=== PATIENT | male | born 1995 ===

== ENCOUNTER 2020-10-21 15:03 | Emergency (ER) | payer OTHER, SELFPAY ==
[2020-10-21 15:32] VITALS: BP 159/81; PULSE 74; RESP 16; TEMP 36.9; O2SAT 100; BMI 38.9
[2020-10-21] MEDS: Diphth,Pertus(ACell),Tet Adult 0.5 ML SYRINGE IM (16:31)
--- NOTE | 2020-10-21 16:31 | ED.WOUNDLAC ---
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 He states he had difficulty controlling the bleeding so he came to the ER for evaluation. On arrival bleeding is controlled and a band-aid is in place. He has no numbness or tingling. He has full ROM of his finger. Laceration is superficial and at the tip of the middle finger. Onset (ago): hour(s) (1) Extremity Location: right: hand (middle finger) Place: work Patient tetanus UTD: No Context: accidental Treatments prior to arrival: bandage Related Data Allergies Allergy/AdvReac Type Severity Reaction Status Date / Time No Known Allergies Allergy Unverified 10/21/20 15:34 Review of Systems Review of Systems: Constitutional: No Fever, No Chills Gastrointestinal: No Nausea Musculoskeletal: No joint pain Skin: + Skin Lesions, No rash Neuro: No Weakness, No Numbness Heme/Lymph: No Bruising PMFSH Past Medical History Attestation statement: The following information was validated with the patient. Medical History No known health problems Social History Social History Advance Directives: No Advance Directives Information Provided: Yes Physical Exam Vital Signs: Vital Signs: Last Vital Signs Temp 98.4 F 10/21/20 15:32 Pulse 74 10/21/20 15:32 Resp 16 10/21/20 15:32 BP 159/81 H 10/21/20 15:32 Pulse Ox 100 10/21/20 15:32 Body Mass Index 38.9 Appearance: Alert. Oriented X3. No acute distress. HEENT: normal inspection CVS: Normal heart rate and rhythm. Pulses normal. Respiratory: No respiratory distress. Skin: Skin warm and dry. Normal skin color. Normal skin turgor. No rashes. Extremities: right middle finger with 0.5cm superficial laceration to the distal pulp without active bleeding. Neuro: Oriented X 3. No motor deficit. No sensory deficit. Course Course Course Narrative: 25 y/o male here with superficial laceration to 3rd right finger. Wound was glued shut with Dermabond. TDAP administered. Wound care discussed. Pt stable for d/c. Procedures Laceration Laceration 1: Site: hand (midde finger) Side (If applicable): right Size (cm): 0.5 Description: linear Depth: simple, single layer Pre-repair: irrigated extensively Skin layer closed with: other (Dermabond skin adhesive ) Critical Care Time Critical Care Time Critical Care Time: No Discharge Plan Discharge Clinical Impression: Laceration Patient Disposition: Home, Self-Care Instructions: Finger Laceration (ED) Additional Instructions: Your laceration was glued shut today. This will fall off on its own, usually within 7-10 days. Do not get your finger wet today. After 24 hours, you can gently wash with soap and water. Limit use of your finger if able for the next 24-48 hours. If you develop increased pain, swelling, redness or drainage of pus call your doctor or come back to the ER for further evaluation. Referrals: [facility] [Provider Group] - 2 days
== END 2020-10-21 16:55 | disposition home or self-care (01) ==
LOC: HO.ED 16:23
PROVIDERS: Emergency Provider Emergency Medicine
DX: S61.212A Laceration without foreign body of right middle finger without damage to nail, initial encounter (principal); W31.82XA Contact with other commercial machinery, initial encounter; Y93.89 Activity, other specified; Y92.513 Shop (commercial) as the place of occurrence of the external cause; Y99.0 Civilian activity done for income or pay
CPT/HCPCS: 12001; 90471; 90715; 99283; 99284

== ENCOUNTER 2022-08-13 22:23 | Emergency (ER) | payer OTHER, SELFPAY ==
--- NOTE | ~2022-08-13 | US_ITS ---
EXAMINATION: US VENOUS ULTRASOUND WITH DOPPLER LOWER EXTREMITY, RIGHT CLINICAL INFORMATION: Positive d-dimer. Right calf pain. COMPARISON: None TECHNIQUE: Ultrasound of the deep veins is performed from the hip to the calf with compression sonography and color and pulse Doppler assessment. Spectral analysis with color-flow imaging is performed. FINDINGS: There is normal venous compression and respiratory variation and augmented flow. The visualized common femoral vein, superficial femoral vein, profunda femoral vein, popliteal vein, and the trifurcation region shows no evidence of deep venous thrombosis. There is no significant popliteal fossa cyst. If the patient's symptoms persist, followup ultrasound in 5 days 7 days might be of value to exclude proximal propagation from a non-visualized calf vein. US/US venous duplex LE RT IMPRESSION: No DVT demonstrated in the right lower extremity.
--- NOTE | ~2022-08-13 | XR_ITS ---
EXAMINATION: XR KNEE, RIGHT CLINICAL INFORMATION: Pain COMPARISON: None TECHNIQUE: Four views of the right knee. FINDINGS: No significant joint effusion. Bones are normal anatomic alignment with no acute fracture or dislocation seen. No degenerative or destructive changes and no periosteal reaction. Surrounding soft tissues unremarkable XR/XR knee RT 4V IMPRESSION: No acute bony abnormality.
--- NOTE | ~2022-08-13 | CT_ITS ---
EXAMINATION: CT HEAD WITHOUT CONTRAST CLINICAL INFORMATION: Headache. Family history of brain tumors. COMPARISON: None. TECHNIQUE: Contiguous axial imaging was performed from the skull base to vertex without intravenous contrast. This CT examination was performed using dose optimization techniques as appropriate, variously including the following: * Automated exposure control * Adjustment of mA and/or kV according to patient size (this includes techniques or standardized protocols for targeted exams where dose is matched to indication/reason for exam; i.e. extremities or head) Use of iterative reconstruction technique DLP: 852 mGy-cm. FINDINGS: There is no evidence of acute intracranial hemorrhage or territorial infarction. No abnormal mass effect or midline shift is seen. Eng to white matter differentiation is well preserved. No extra-axial fluid collections are identified. No hydrocephalus. No significant volume loss. There is no abnormal attenuation within the brain parenchyma. The osseous structures and soft tissues are normal. The mastoid air cells and visualized portions of the paranasal sinuses are well aerated. CT/CT head/brain wo IV con IMPRESSION: No acute intracranial pathology.
[2022-08-13 22:26] VITALS: BP 139/70; PULSE 78; RESP 16; TEMP 36.7; O2SAT 98; BMI 34.9
--- NOTE | 2022-08-14 01:30 | ED.GENADULT ---
HPI - General Adult General Chief complaint: Extremity Injury, Lower <MAINOR Carlos - Last Filed: 08/14/22 02:16> Stated complaint: head and knee hurt <MAINOR Carlos - Last Filed: 08/14/22 02:16> Time Seen by Provider: 08/14/22 01:29 <MAINOR Carlos Last Filed: 08/14/22 02:16> Source: patient <MAINOR Carlos Last Filed: 08/14/22 02:16> Mode of arrival: ambulatory <MAINOR Carlos Last Filed: 08/14/22 02:16> Limitations: no limitations <MAINOR Carlos Last Filed: 08/14/22 02:16> History of Present Illness HPI narrative: This is a 27-year-old male presenting to the emergency department with complaints of right-sided knee pain, right thigh pain and headache. Patient tells me initially the pain started off as right-sided knee pain, he says he now has a boring pain to the right knee, worse with movement better at rest he says it started after a skateboarding injury that happened a few months ago. He now tells me that he has been having this boring/throbbing pain to his right posterior knee/in her calf region. Patient denies history of DVT or PE, no hypercoagulable disorders, not in smoker, no long travel, no hormone replacement therapy. Patient also complaining of a headache he tells me he slightly worried because his mom has a brain tumor, he tells me the headache is a throbbing sensation to the right posterior aspect of his head he tells me it time he gets sharp pains and other times it stings. Patient has never had imaging of his head. Denies vision changes, dizziness. Patient not on blood thinners. Patient denies any recent trauma to head, chest, abdomen or pelvis. Patient denies chest pain, shortness of breath, nausea, vomiting, abdominal pain, vision changes, weakness. Patient was ambulatory into the room without difficulty. <MAINOR Carlos Last Filed: 08/14/22 02:16> Related Data Home medications: Previous Rx's Medication Instructions Recorded ketorolac 10 mg tablet 10 mg PO TID PRN pain 5 days #15 08/14/22 tabs <MAINOR Carlos - Last Filed: 08/14/22 02:16> Allergies/adverse reactions: Allergies Allergy/AdvReac Type Severity Reaction Status Date / Time No Known Allergies Allergy Verified 08/13/22 22:29 <MAINOR Carlos - Last Filed: 08/14/22 02:16> Review of Systems Review of Systems: Constitutional : No Weight loss, No Fever, No Chills, No Fatigue, No Malaise ENT/Mouth : No sore throat, No Rhinorrhea Eyes: No Eye Pain, No Swelling, No Redness Cardiovascular : No Chest Pain, No SOB, No Dyspnea on Exertion, No Orthopnea, No Edema, No Palpitations Respiratory : No Cough, No Sputum, No Wheezing Gastrointestinal : No Nausea, No Vomiting, No Diarrhea, No Constipation, No abdominal Pain, No Hematochezia, No Melena Genitourinary : No Dysuria, No Urinary Frequency, No Hematuria, Musculoskeletal : + joint pain, No Myalgias, No Joint Swelling, + calf pain Skin : No Skin Lesions, No rash Neuro : No Weakness, No Numbness, No Dizziness, + Headache Psych : No Anxiety/Panic, No Depression All other systems reviewed and are negative <MAINOR Carlos Last Filed: 08/14/22 02:16> Yes all other systems are reviewed and are negative <MAINOR Carlos - Last Filed: 08/14/22 02:16> [facility] Past Medical History Attestation statement: The following information was validated with the patient. <MAINOR Carlos - Last Filed: 08/14/22 02:16> Source: old records reviewed and nursing notes reviewed <MAINOR Carlos - Last Filed: 08/14/22 02:16> Medical History: Medical History No known health problems <MAINOR Carlos Last Filed: 08/14/22 02:16> Social History Social History: Social History Advance Directives: No <MAINOR Carlos - Last Filed: 08/14/22 02:16> Physical Exam ED Vital Signs: Vital Signs - 24 hr 08/13/22 22:26 Temperature 98.1 F Pulse Rate 78 Respiratory Rate 16 Blood Pressure 139/70 Pulse Oximetry 98 Oxygen Delivery Method Room Air BMI result Body Mass Index 34.9 Vital signs stable <MAINOR Carlos - Last Filed: 08/14/22 02:16> Vital Signs - 24 hr 08/13/22 22:26 Temperature 98.1 F Pulse Rate 78 Respiratory Rate 16 Blood Pressure 139/70 Pulse Oximetry 98 Oxygen Delivery Method Room Air BMI result Body Mass Index 34.9 <Feliciano Akins MD - Last Filed: 08/14/22 04:40> Appearance: Alert.? Oriented X3.? No acute distress.? Head: Normocephalic, atraumatic, no step-offs or deformities Eyes: Pupils equal, round and reactive to light.? ENT: Pharynx normal.? Neck: Normal inspection.? Neck supple.? CVS: Normal heart rate and rhythm.? Pulses normal.? Respiratory: No respiratory distress.? Breath sounds normal.? Abdomen: Soft and nontender.? Skin: Skin warm and dry.? Normal skin color.? Normal skin turgor.? Extremities: No lower extremity edema.? 5/5 strength to bilateral upper and lower extremities. Full range of motion to bilateral knees, pain-free. No overlying skin changes to bilateral knees. 2+ popliteal, anterior tibialis, posterior tibialis pulses equal bilateral. Normal capillary refill to lower extremities, no foot drop. Patient does report tenderness to palpation with right inner calf. No calf tenderness to palpation of left inner calf. Back: No midline tenderness, no C-spine tenderness, full range of motion, no CVA tenderness bilaterally Neuro: Oriented X 3.? No motor deficit.? No sensory deficit. CN 2-12 intact . Patient ambulatory with steady gait normal coordination. Normal [id number], [id number]. <MAINOR Carlos - Last Filed: 08/14/22 02:16> Course Reevaluation(s) Reevaluation #1: X-ray of right knee unremarkable. D-dimer pending. Pending CT of the head. <MAINOR Carlos - Last Filed: 08/14/22 02:16> Time: 01:35 <MAINOR Carlos - Last Filed: 08/14/22 02:16> Reevaluation #2: Positive D-dimer, venous duplex of right lower extremity ordered to rule out DVT. I do not suspect arterial occlusion on this patient. Sign-out given tonight provider Dr. Akins <MAINOR Carlos - Last Filed: 08/14/22 02:16> Time: 02:13 <MAINOR Carlos - Last Filed: 08/14/22 02:16> Medications Administered Discontinued Medications Generic Name Dose Route Start Last Admin Trade Name Freq PRN Reason Stop Dose Admin Ketorolac Tromethamine 30 mg 08/14/22 01:30 08/14/22 01:50 Ketorolac Tromethamine 15 Mg/Ml Vial IM 08/14/22 01:31 30 mg ONCE ONE Administration <MAINOR Carlos - Last Filed: 08/14/22 02:16> Medications Administered Discontinued Medications Generic Name Dose Route Start Last Admin Trade Name Freq PRN Reason Stop Dose Admin Ketorolac Tromethamine 30 mg 08/14/22 01:30 08/14/22 01:50 Ketorolac Tromethamine 15 Mg/Ml Vial IM 08/14/22 01:31 30 mg ONCE ONE Administration <Feliciano Akins MD - Last Filed: 08/14/22 04:40> Medical Decision Making Medical Decision Making [facility] Narrative: 0[age]-year-old male presents with right knee pain, right calf pain and headache. Physical examination with calf tenderness to palpation on the right-hand side. Normal knees. Neuro nonfocal. Will rule out fracture dislocation of the knee although unlikely. Calf tenderness raises suspicion for DVT although patient without significant risk factors will do D-dimer to rule this out. Headache likely typical headache, no vision changes or dizziness unlikely stroke, posterior stroke. Due to family history of brain tumors will obtain head CT. Plan at this time imaging. <MAINOR Carlos - Last Filed: 08/14/22 02:16> 0134 19-year-old male presents with right knee pain, right calf pain and headache. Physical examination with calf tenderness to palpation on the right-hand side. Normal knees. Neuro nonfocal. Will rule out fracture dislocation of the knee although unlikely. Calf tenderness raises suspicion for DVT although patient without significant risk factors will do D-dimer to rule this out. Headache likely typical headache, no vision changes or dizziness unlikely stroke, posterior stroke. Due to family history of brain tumors will obtain head CT. Plan at this time imaging. 440 ampatient clinically as thrombophlebitis of right foot calf area ultrasound negative CT scan of head negative discharge patient <Feliciano Akins MD - Last Filed: 08/14/22 04:40> Differential Diagnosis Differential Diagnoses: The differential diagnosis associated with the presentation includes <MAINOR Carlos - Last Filed: 08/14/22 02:16> Will rule out fracture dislocation of the knee although unlikely. Calf tenderness raises suspicion for DVT although patient without significant risk factors will do D-dimer to rule this out. Headache likely typical headache, no vision changes or dizziness unlikely stroke, posterior stroke. Due to family history of brain tumors will obtain head CT. <MAINOR Carlos - Last Filed: 08/14/22 02:16> Admission/Observation Consideration of admission/observation: Escalation of care including admission/observation considered <MAINOR Carlos - Last Filed: 08/14/22 02:16> Unlikely <MAINOR Carlos - Last Filed: 08/14/22 02:16> Lab Data MDM Lab Attestation statement: I reviewed the patient's lab results. <MAINOR Carlos - Last Filed: 08/14/22 02:16> Labs: Lab Results 08/14/22 Range/Units 01:46 D-Dimer High Sensitivty 417 NG/ML <MAINOR Carlos - Last Filed: 08/14/22 02:16> Lab Results 08/14/22 Range/Units 01:46 D-Dimer High Sensitivty 417 NG/ML <Feliciano Akins MD - Last Filed: 08/14/22 04:40> Core Measures AMI core measures followed: Yes <MAINOR Carlos - Last Filed: 08/14/22 02:16> Measure exclusions: not indicated <MAIONR Carlos Last Filed: 08/14/22 02:16> Critical Care Time Critical Care Time Critical Care Time: No <MAINOR Carlos Last Filed: 08/14/22 02:16> Discharge Plan Discharge Clinical Impression: Knee pain, right, Calf pain, Headache <MAINOR Carlos Last Filed: 08/14/22 02:16> Patient Disposition: Home, Self-Care <MAINOR Carlos Last Filed: 08/14/22 02:16> Instructions: Acute Headache (ED), Leg Cramps (ED), Knee Pain (ED), General Headache (ED) <MAINOR Carlos Last Filed: 08/14/22 02:16> Additional Instructions: Take your medications as prescribed. If you were prescribed antibiotics today, it is important that you take your medication to their entirety, do not skip any doses, do not finish them early. Follow-up with your primary care provider this week. Return to the emergency department with new or worsening symptoms. Such as fevers, chills, chest pain, shortness of breath, nausea, vomiting, dizziness, headache, vision changes, lethargy In case of emergency call 911 Toradol has been sent to your pharmacy, you tolerated this well in the department. Please take this as prescribed do not take this with ibuprofen, or other NSAIDs, do not mix this with alcohol. Side effects of this medication including increased risk for bleeding and possible kidney injury. <MAINOR Carlos Last Filed: 08/14/22 02:16> Prescriptions: New ketorolac 10 mg tablet 10 mg PO TID PRN (Reason: pain) 5 Days Qty: 15 0RF Rx Instructions: Tolerated IM in the department <MAINOR Carlos Last Filed: 08/14/22 02:16> Referrals: Physician,None [Primary Care Provider] - 2 days <MAINOR Carlos Last Filed: 08/14/22 02:16> Stand Alone Forms: Work/School Release <MAINOR Carlos Last Filed: 08/14/22 02:16>
[2022-08-14] MEDS: Ketorolac Tromethamine 15 MG/ML VIAL 30 MG IM (01:50)
[2022-08-14 02:03] LABS: D Dimer High Sensitivity 417 NG/ML
== END 2022-08-14 04:42 | disposition home or self-care (01) ==
PROVIDERS: Physician Assistant; Emergency Provider Internal Medicine
DX: R51.9 Headache, unspecified (principal); M79.661 Pain in right lower leg; M25.561 Pain in right knee
CPT/HCPCS: 36415; 70450; 73564; 85379; 93971; 96372; 99283; 99284; J1885

== ENCOUNTER 2022-11-11 19:15 | Emergency (ER) | payer OTHER, SELFPAY ==
[2022-11-11 19:15] VITALS: BP 159/96; PULSE 128; RESP 18; TEMP 36.6; O2SAT 98; BMI 38.0
--- NOTE | 2022-11-11 19:17 | ED.UPPEXIN ---
HPI - Extremity Injury (Upper) General Chief Complaint: Wound/Laceration <Viki Portillo NP - Last Filed: 11/11/22 19:20> Stated Complaint: Finger lac <Viki Portillo NP - Last Filed: 11/11/22 19:20> Time Seen by Provider: 11/11/22 20:35 <Viki Portillo NP - Last Filed: 11/11/22 19:20> Source: patient <MAINOR Carlos - Last Filed: 11/11/22 21:28> Mode of arrival: ambulatory <MAINOR Carlos - Last Filed: 11/11/22 21:28> Limitations: no limitations <MAINOR Carlos - Last Filed: 11/11/22 21:28> History of Present Illness HPI narrative: 27-year-old male presents with laceration to left thumb, patient reports he accidentally cut his some while trying to cut any in's an hour prior to arrival. He reports he was bleeding a lot. Denies numbness, tingling. He tells me the area where he cut his finger is throbbing. <MAINOR Carlos - Last Filed: 11/11/22 21:28> Related Data Home Medications: Previous Rx's Medication Instructions Recorded ketorolac 10 mg tablet 10 mg PO TID PRN pain 5 days #15 08/14/22 tabs <Viki Portillo NP - Last Filed: 11/11/22 19:20> Allergies/Adverse Reactions: Allergies Allergy/AdvReac Type Severity Reaction Status Date / Time No Known Allergies Allergy Verified 08/13/22 22:29 <Viki Portillo NP - Last Filed: 11/11/22 19:20> Review of Systems Review of Systems: Constitutional : No Fever, No Chills, Cardiovascular : No Chest Pain, No SOB Respiratory : No Dyspnea Gastrointestinal : No abdominal pain Musculoskeletal : No Joint Swelling Skin : No rash, positive skin laceration Neuro : No Weakness, No Numbness Psych : No SI/HI <MAINOR Carlos Last Filed: 11/11/22 21:28> Yes all other systems are reviewed and are negative <MAINOR Carlos - Last Filed: 11/11/22 21:28> [facility] Past Medical History Attestation statement: The following information was validated with the patient. <MAINOR Carlos - Last Filed: 11/11/22 21:28> Source: old records reviewed and nursing notes reviewed <MAINOR Carlos - Last Filed: 11/11/22 21:28> Medical History: Medical History No known health problems <Viki Portillo NP - Last Filed: 11/11/22 19:20> Social History Social History: Social History Advance Directives: No Advance Directives Information Provided: No <Viki Portillo NP - Last Filed: 11/11/22 19:20> Physical Exam Vital Signs: Vital Signs: Last Vital Signs Temp 97.9 F 11/11/22 19:15 Pulse 128 H 11/11/22 19:15 Resp 18 11/11/22 19:15 BP 159/96 H 11/11/22 19:15 Pulse Ox 98 11/11/22 19:15 O2 Del Method Room Air 11/11/22 19:15 BMI result Body Mass Index 38.0 <Viki Portillo NP - Last Filed: 11/11/22 19:20> Vital Signs: Last Vital Signs Temp 97.9 F 11/11/22 19:15 Pulse 128 H 11/11/22 19:15 Resp 18 11/11/22 19:15 BP 159/96 H 11/11/22 19:15 Pulse Ox 98 11/11/22 19:15 O2 Del Method Room Air 11/11/22 19:15 BMI result Body Mass Index 38.0 Vital signs stable <MAINOR Carlos - Last Filed: 11/11/22 21:28> Appearance: Alert.? Oriented X3.? No acute distress.? Head: Normocephalic, atraumatic, no step-offs or deformities Eyes: Pupils equal, round and reactive to light.? CVS: Normal heart rate and rhythm.? Pulses normal.? Respiratory: No respiratory distress.? Breath sounds normal.? Abdomen: Soft and nontender.? Skin: Skin warm and dry.? Normal skin color.? Normal skin turgor.? 4 cm linear laceration to left thumb distal aspect. 2+ radial pulses equal bilateral. No wrist drop. Capillary refill less than 2 seconds top bilateral upper extremity digits. Extremities: No lower extremity edema.? No calf ttp. 5/5 strength to bilateral upper and lower extremities Back: No midline tenderness, no C-spine tenderness, full range of motion, no CVA tenderness bilaterally Neuro: Oriented X 3.? No motor deficit.? No sensory deficit. CN 2-12 intact <MAINOR Carlos - Last Filed: 11/11/22 21:28> Course Course Course Narrative: This is a rapid medical exam. Deferred additional HPI, ROS, PE to primary provider. 27 yo male right handed with no known medical history of left thumb laceration from cutting an onion at home. Tetanus UTD. Will need wound repair of 4cm lac left thumb. <Viki Portillo NP - Last Filed: 11/11/22 19:20> Reevaluation(s) Reevaluation #1: Sutures placed. Patient tolerated procedure well. No complications. Advised to return in 7-10 days. For suture removal. No indication for antibiotics. Educated patient on diagnosis and treatment plan, answered all question, patient verbalizes understanding. At this time patient will be discharged home, advised to return with new or worsening symptoms. Educated on worrisome signs and symptoms and when to return. At this time I feel comfortable discharge home. <MAINOR Carlos - Last Filed: 11/11/22 21:28> Time: 21:28 <MAINOR Carlos - Last Filed: 11/11/22 21:28> Medications Administered Discontinued Medications Generic Name Dose Route Start Last Admin Trade Name Freq PRN Reason Stop Dose Admin Lidocaine HCl 5 ml 11/11/22 21:01 11/11/22 21:08 Lidocaine Hcl 2 % Mpf 5 Ml Vial SUBCUT 11/11/22 21:02 Not Given ONCE ONE <Viki Portillo NP - Last Filed: 11/11/22 19:20> Medications Administered Discontinued Medications Generic Name Dose Route Start Last Admin Trade Name Freq PRN Reason Stop Dose Admin Lidocaine HCl 5 ml 11/11/22 21:01 11/11/22 21:08 Lidocaine Hcl 2 % Mpf 5 Ml Vial SUBCUT 11/11/22 21:02 Not Given ONCE ONE <MAINOR Carlos - Last Filed: 11/11/22 21:28> Medical Decision Making Medical Decision Making MDM Narrative: 27-year-old male presents with left thumb laceration status post cutting an onion. Tetanus up-to-date Physical exam significant for 4 cm linear laceration to left thumb distal aspect. 2+ radial pulses equal bilateral. No wrist drop. Capillary refill less than 2 seconds top bilateral upper extremity digits. Likely simple laceration, no signs of foreign body. No signs of ligament or tendon injury. Unlikely fracture, dislocation. No signs of threatened limb or neurovascular compromise Plan repair with sutures <MAINOR Carlos - Last Filed: 11/11/22 21:28> Differential Diagnosis Differential Diagnoses: The differential diagnosis associated with the presentation includes <MAINOR Carlos - Last Filed: 11/11/22 21:28> Likely simple laceration, no signs of foreign body. No signs of ligament or tendon injury. Unlikely fracture, dislocation. No signs of threatened limb or neurovascular compromise <MAINOR Carlos - Last Filed: 11/11/22 21:28> Admission/Observation Consideration of admission/observation: Escalation of care including admission/observation considered <MAINOR Carlos - Last Filed: 11/11/22 21:28> Core Measures AMI core measures followed: Yes <MAINOR Carlos - Last Filed: 11/11/22 21:28> Measure exclusions: not indicated <MAINOR Carlos - Last Filed: 11/11/22 21:28> Procedures Laceration Laceration 1: Site: hand <MAINOR Carlos Last Filed: 11/11/22 21:28> Side (If applicable): left <MAINOR Carlos Last Filed: 11/11/22 21:28> Size (cm): 4 <MAINOR Carlos - Last Filed: 11/11/22 21:28> Description: linear <MAINOR Carlos - Last Filed: 11/11/22 21:28> Depth: simple, single layer <MAINOR Carlos - Last Filed: 11/11/22 21:28> Local Anesthetic: lidocaine 1% <MAINOR Carlos - Last Filed: 11/11/22 21:28> Amount of anesthesia used (mL): 5 <MAINOR Carlos - Last Filed: 11/11/22 21:28> Pre-repair: wound explored and irrigated extensively <MAINOR Carlos - Last Filed: 11/11/22 21:28> Skin layer closed with: nylon <MAINOR Carlos - Last Filed: 11/11/22 21:28> Size (cm): 4-0 <MAINOR Carlos - Last Filed: 11/11/22 21:28> Number of sutures: 2 <MAINOR Carlos Last Filed: 11/11/22 21:28> Critical Care Time Critical Care Time Critical Care Time: No <MAINOR Carlos - Last Filed: 11/11/22 21:28> Discharge Plan Discharge Clinical Impression: Laceration <iVki Portillo NP - Last Filed: 11/11/22 19:20> Patient Disposition: Home, Self-Care <Viki Portillo NP - Last Filed: 11/11/22 19:20> Additional Instructions: Take your medications as prescribed. If you were prescribed antibiotics today, it is important that you take your medication to their entirety, do not skip any doses, do not finish them early. Follow-up with your primary care provider this week. Return to the emergency department with new or worsening symptoms. Such as fevers, chills, chest pain, shortness of breath, nausea, vomiting, dizziness, headache, vision changes, lethargy In case of emergency call 911 Return for suture removal in 7-10 days. <ADELE Noble Last Filed: 11/11/22 19:20> Prescriptions: No Action ketorolac 10 mg tablet 10 mg PO TID PRN (Reason: pain) 5 Days Qty: 15 0RF Rx Instructions: Tolerated IM in the department <Viki Portillo NP - Last Filed: 11/11/22 19:20> Referrals: Physician,None [Primary Care Provider] - 2 days <Viki Portillo NP - Last Filed: 11/11/22 19:20> Stand Alone Forms: Work/School Release <Viki Portillo NP - Last Filed: 11/11/22 19:20>
== END 2022-11-11 21:40 | disposition home or self-care (01) ==
PROVIDERS: Emergency Provider Emergency Medicine
DX: S61.412A Laceration without foreign body of left hand, initial encounter (principal); M79.642 Pain in left hand; W26.0XXA Contact with knife, initial encounter; Y93.9 Activity, unspecified; Y92.9 Unspecified place or not applicable; Y99.9 Unspecified external cause status
CPT/HCPCS: 12002; 99282; 99284

== ENCOUNTER 2023-07-22 16:47 | Emergency (ER) | payer OTHER, SELFPAY ==
--- NOTE | ~2023-07-22 | CT_ITS ---
EXAMINATION: CT left knee without IV contrast CLINICAL INFORMATION: Tibial plateau fracture. COMPARISON: Previous x-ray from earlier the same day TECHNIQUE: Axial images through the left knee without IV contrast. Sagittal and coronal reconstructions on the technologist workstation were performed. This CT examination was performed using dose optimization techniques as appropriate, variously including the following: *Automated exposure control *Adjustment of mA and/or kV according to patient size (this includes techniques or standardized protocols for targeted exams where dose is matched to indication/reason for exam; i.e. extremities or head) *Use of iterative reconstruction technique DLP 1 4 4 mg/cm FINDINGS: There is a comminuted lateral tibial plateau fracture. There is 2 mm depression. There is a lateral vertical component. There is 4 mm lateral displacement of the vertical component. No other fracture. Joint spaces are otherwise normal. There is a moderate-sized joint effusion. CT/CT knee LT wo IV con IMPRESSION: Comminuted lateral tibial fracture with 2 mm depression and 4mm lateral displacement of vertical component.
--- NOTE | ~2023-07-22 | XR_ITS ---
EXAMINATION: X-RAY LEFT KNEE X-RAY LEFT TIBIA/FIBULA CLINICAL INFORMATION: Injury. COMPARISON: None. TECHNIQUE: 4 views of the left knee and 2 views of the left tibia/fibula. FINDINGS: Comminuted fracture of the lateral tibial plateau with intra-articular extension and mild depression of the intra-articular surface. No additional fractures. Moderate joint effusion in the knee. No unexpected radiopaque foreign bodies. XR/XR tibia fibula LT 2V IMPRESSION: 1. Comminuted fracture of the lateral tibial plateau. 2. Moderate joint effusion.
--- NOTE | ~2023-07-22 | XR_ITS ---
EXAMINATION: X-RAY LEFT KNEE X-RAY LEFT TIBIA/FIBULA CLINICAL INFORMATION: Injury. COMPARISON: None. TECHNIQUE: 4 views of the left knee and 2 views of the left tibia/fibula. FINDINGS: Comminuted fracture of the lateral tibial plateau with intra-articular extension and mild depression of the intra-articular surface. No additional fractures. Moderate joint effusion in the knee. No unexpected radiopaque foreign bodies. XR/XR knee LT 3V IMPRESSION: 1. Comminuted fracture of the lateral tibial plateau. 2. Moderate joint effusion.
--- NOTE | 2023-07-22 18:52 | ED.FALL ---
HPI - Fall General Chief Complaint: Extremity Injury, Lower Stated Complaint: fell down stairs/left side pain Time Seen by Provider: 07/22/23 19:30 Source: patient Mode of arrival: ambulatory Limitations: no limitations History of Present Illness HPI Narrative: Patient comes to the emergency room complaining of left-sided knee pain anti pain. Patient states that earlier today he was walking up the stairs, patient slipped both was able to land on both of his legs. Patient states that for about 45 minutes he was able to keep working. However, shortly after patient started complaining of worsening pain around the left knee area and the left eye. Related Data Previous Rx's Medication Instructions Recorded ketorolac 10 mg tablet 10 mg PO TID PRN pain 5 days #15 08/14/22 tabs acetaminophen 500 mg tablet 500 mg PO Q6H PRN fever or pain 07/22/23 #20 tabs ibuprofen 600 mg tablet 600 mg PO Q8H PRN fever or pain 07/22/23 #30 tabs tramadol 50 mg tablet 50 mg PO Q8H PRN pain #10 tabs 07/22/23 Allergies Allergy/AdvReac Type Severity Reaction Status Date / Time No Known Allergies Allergy Verified 08/13/22 22:29 [facility] Past Medical History Medical History No known health problems Social History Social History Advance Directives: No Advance Directives Information Provided: Yes Physical Exam Vital Signs: Vital Signs: Last Vital Signs Temp 97.7 F 07/22/23 19:30 Pulse 77 07/22/23 19:30 Resp 16 07/22/23 19:30 BP 143/71 H 07/22/23 19:30 Pulse Ox 99 07/22/23 19:30 O2 Del Method Room Air 07/22/23 19:30 BMI result Body Mass Index 35.7 Course Course Course Narrative: RME: 28 year-old male w/ PMHx presenting to the ED c/o L knee pain s/p slip & fall while walking up the stairs at work, slipping on top stair & then jumping backwards down 6 stairs & felt like he landed wrong on feet. Unable to bear weight now, but was ambulatory after incident for about 45mins. denies head trauma or LOC L knee with diffuse ttp and decreased ROM. Unable to visualize in triage XRs ordered Full HPI, ROS and PE to be performed by primary ED provider. Medications Administered Discontinued Medications Generic Name Dose Route Start Last Admin Trade Name Nena PRN Reason Stop Dose Admin Acetaminophen 975 mg 07/22/23 19:48 07/22/23 20:03 Acetaminophen 325 Mg Tablet PO 07/22/23 19:49 975 mg ONCE ONE Administration Ibuprofen 600 mg 07/22/23 19:48 07/22/23 20:03 Ibuprofen 600 Mg Tablet PO 07/22/23 19:49 600 mg ONCE ONE Administration Medical Decision Making Medical Decision Making MDM Narrative: -my interpretation of x-ray, possible lateral tibial plateau fracture of the left knee. -patient declined IM medication. Patient given p.o. Motrin and Tylenol. -I discussed the x-ray findings with orthopedics on-call. -CT scan recommended to determine displacement and depth -CT scan result shows 2 mm depression and 4 mm lateral displacement. -per orthopedics recommendation, patient was put on a knee immobilizer, given crutches, nonweightbearing. Patient will follow-up with them -patient instructed to follow-up with were connection as this was a work related injury Differential Diagnosis Differential Diagnoses: The differential diagnosis associated with the presentation includes (Knee contusion, fracture, effusion) Admission/Observation Consideration of admission/observation: Escalation of care including admission/observation considered (Given patient's fracture, admission was considered by Orthopedics.) Consult Healthcare Provider Management of the patient was discussed with: Armor Officer Independent Interpretation I performed an independent interpretation of an: CT Scan Radiology Impression Discussion of test interpretation with radiology: I have reviewed the radiologist's reading. Radiologist Impression: FINDINGS: There is a comminuted lateral tibial plateau fracture. There is 2 mm depression. There is a lateral vertical component. There is 4 mm lateral displacement of the vertical component. No other fracture. Joint spaces are otherwise normal. There is a moderate-sized joint effusion. CT/CT knee LT wo IV con IMPRESSION: Comminuted lateral tibial fracture with 2 mm depression and 4mm lateral displacement of vertical component. Critical Care Time Critical Care Time Critical Care Time: Yes Total Critical Care Time: 60 Attestation: I have personally provided critical care time. Time includes review of lab data, radiology results, discussion with consultants, and monitoring for potential decompensation. Intervention performed as documented. Discharge Plan Discharge Clinical Impression: Closed fracture of tibial plateau Patient Disposition: Home, Self-Care Instructions: Leg Fracture (ED) Additional Instructions: Do not bear weight on your left leg until cleared by Orthopedics. Please call orthopedics to schedule an appointment. Please follow-up with your primary care physician tomorrow. If you have any worsening or new symptoms, please return to the emergency room or call 911 Prescriptions: New tramadol 50 mg tablet 50 mg PO Q8H PRN (Reason: pain) Qty: 10 0RF ibuprofen 600 mg tablet 600 mg PO Q8H PRN (Reason: fever or pain) Qty: 30 0RF acetaminophen 500 mg tablet 500 mg PO Q6H PRN (Reason: fever or pain) Qty: 20 0RF No Action ketorolac 10 mg tablet 10 mg PO TID PRN (Reason: pain) 5 Days Qty: 15 0RF Rx Instructions: Tolerated IM in the department Referrals: Bonita Sotomayor PA-C [Physician Senior Product Manager] - 07/23/23 Bora Yost MD [Physician] - 07/23/23 Stand Alone Forms: Work/School Release
[2023-07-22 18:55] VITALS: BP 137/75; PULSE 82; RESP 18; TEMP 37.4; O2SAT 99; BMI 35.7
[2023-07-22 19:30] VITALS: BP 143/71; PULSE 77; RESP 16; TEMP 36.5; O2SAT 99
[2023-07-22] MEDS: Ibuprofen 600 MG TABLET PO (20:03)
[2023-07-22] MEDS: Acetaminophen 325 MG TABLET 975 MG PO (20:03)
[2023-07-22 22:09] VITALS: BP 126/62; PULSE 66; RESP 16; TEMP 36.5; O2SAT 98
== END 2023-07-22 23:05 | disposition home or self-care (01) ==
PROVIDERS: Emergency Provider Emergency Medicine
DX: S82.252A Displaced comminuted fracture of shaft of left tibia, initial encounter for closed fracture (principal); W17.89XA Other fall from one level to another, initial encounter; Y93.89 Activity, other specified; Y92.9 Unspecified place or not applicable; Y99.0 Civilian activity done for income or pay
CPT/HCPCS: 73562; 73590; 73700; 99283; 99284

== ENCOUNTER → 2023-07-28 12:49 | Outpatient (BNVA) | payer OTHER, SELFPAY | PROVIDERS: Visit Provider Physician Assistant ==

== ENCOUNTER 2023-07-28 12:50 | Outpatient (AMB) | payer OTHER, SELFPAY ==
--- NOTE | 2023-07-28 13:21 | MHC.OFFVIS ---
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 Patient reports he was going up the stairs and he slipped on the top step and feel down injuring his left leg. He states that he feels a lot of soreness and he states applying some weight on the left side on accident. 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 The patient presented to the ED on 07/22/2023 status post a slip and fall on the stairs, while at work. He reported he slipped on the top step and jumped backwards 6 steps landing wrong on the bilateral feet. X-rays and CT of the left knee were obtained. The patient was placed in a knee immobilizer, given crutches, and instructed to remain non-weight bearing. While in the office today the patient reports he was going up the stairs when he slipped on the top step and fell down injuring his left lower extremity. He reports increased soreness. He states he has applied weight to the left lower extremity on accident. 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 He states he did not fill at first but he plans on doing so. Patient reports he is transitioning to a new job that is supposed to be on Friday08/05/2023. 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 He would like to get back to work as soon as possible. Patient is accompanied in the office today by a female family member. Patient has no known allergy history. Patient is currently taking, as follows: -Acetaminophen 500 mg PO Q6H PRN -Ibuprofen 600 mg PO Q8H PRN -Ketorolac 10 mg PO TID PRN -Tramadol 50 mg PO Q8H PRN Patient has no known medical history. Patient has no known surgical history. [facility] Medical History No known health problems Social History (Updated 07/28/23 @ 13:26 by Maria Isabel Orr) Alcohol intake: current Current occupational status: employed Review of Systems Const All systems reviewed & are unremarkable except as noted in HPI and below Physical Exam Vital Signs: BMI result Body Mass Index 35.7 Const General: cooperative and no acute distress Orientation/consciousness: patient oriented x3 Resp Effort & Inspection: normal respiratory effort and able to speak in complete sentences Cardio Peripheral pulses: Peripheral pulses 2+ throughout Skin General skin exam: no rashes or lesions noted Neuro General: patient oriented x3 Extrem Other: Left knee: Mild effusion. Tenderness to palpation along the lateral tibia. Able to dorsiflex and plantarflex. He does endorse intermittent numbness and tingling into the toes. Compartments are soft and compressible. Office Procedures Fracture Care Fracture Billing Code: Fracture Billing Code Assessment & Plan Assessment & Plan (1) Tibial plateau fracture, left: Code(s): S82.142A - Displaced bicondylar fracture of left tibia, initial encounter for closed fracture Plan Mr. Martinez is a 28-year-old male who presents in the office today, as a new patient, for an evaluation of left knee pain. The patient presented to the ED on 07/22/2023 status post a slip and fall on the stairs, while at work. He reported he slipped on the top step and jumped backwards 6 steps landing wrong on the bilateral feet. X-rays and CT of the left knee were obtained. The patient was placed in a knee immobilizer, given crutches, and instructed to remain non-weight bearing. While in the office today the patient reports he was going up the stairs when he slipped on the top step and fell down injuring his left lower extremity. He reports increased soreness. He states he has applied weight to the left lower extremity on accident. This injury occurred while on the job at his [employer] job. He states he did not fill at first but he plans on doing so. Patient reports he is transitioning to a new job that is supposed to be on Friday08/05/2023. 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 He would like to get back to work as soon as possible. Patient is accompanied in the office today by a female family member. Patient has no known allergy history. Patient is currently taking, as follows: -Acetaminophen 500 mg PO Q6H PRN -Ibuprofen 600 mg PO Q8H PRN -Ketorolac 10 mg PO TID PRN -Tramadol 50 mg PO Q8H PRN Patient has no known medical history. Patient has no known surgical history. Dr. Atikns was available to see the patient with me while in the office today and collaborative treatment plan was made. We discussed conservative versus surgical treatment. I discussed in detail the procedure and what to expect pre and post operatively. We discussed the risks, benefits and alternatives to the surgery as well as the rehabilitation course. The risks; which include, but are not limited to infection, bleeding, nerve injury, ongoing pain, swelling, and stiffness, perioperative risk of injury to bones and soft tissues, and blood clots. I have answered all questions and with their understanding they have consented to move forward with a left knee tibial plateau ORIF to be performed by Dr. Melquiades Atkins. We discussed with the patient he needs to get the paperwork and claim for worker compensation filed prior to surgery. The patient understands and states he is in the process of getting the claim started. Follow up will be at the post operative appointment, or sooner if needed. CT of the left knee, obtained on 07/22/2023, revealed: There is a comminuted lateral tibial plateau fracture. There is 2 mm depression. There is a lateral vertical component. There is 4 mm lateral displacement of the vertical component. No other fracture. Joint spaces are otherwise normal. There is a moderate-sized joint effusion. X-rays of the left knee, obtained on 07/22/2023, revealed: Comminuted fracture of the lateral tibial plateau with intra-articular extension and mild depression of the intra-articular surface. No additional fractures. Moderate joint effusion in the knee. No unexpected radiopaque foreign bodies. Patient Instructions: Scribed for Bonita Sotomayor PA-C by maria fernanda Mendieta scribe, on 07/28/2023 at 1:02 pm, EST. Coding Level of Care Code New Pt Level 4 (24486) Diagnoses Tibial plateau fracture, left S82.142A CPT Codes Fracture Care - Fracture Billing Code: Fracture Billing Code ([id number])
[2023-07-28 13:26] VITALS: BMI 35.7
== END 2023-07-28 15:04 | disposition home or self-care (01) ==
PROVIDERS: Referring Provider Physician Assistant; Visit Provider Physician Assistant
DX: S82.142A Displaced bicondylar fracture of left tibia, initial encounter for closed fracture (principal); Z04.2 Encounter for examination and observation following work accident
CPT/HCPCS: 99204

== ENCOUNTER 2023-07-30 13:55 | Outpatient (REF) | payer OTHER, SELFPAY | END 2023-07-30 13:56 | disposition home or self-care (01) | LOC: HO.HOSX 13:55 | PROVIDERS: Visit Provider Physician Assistant | DX: Z13.89 Encounter for screening for other disorder (principal) ==

== ENCOUNTER 2023-08-01 09:15 | Outpatient (REF) | payer OTHER, SELFPAY ==
--- NOTE | ~2023-08-01 | XR_ITS ---
EXAMINATION: XR KNEE, LEFT CLINICAL INFORMATION: Pain. COMPARISON: CT knee dated 07/22/2023; left knee radiographs dated 07/22/2023 and 08/13/2022. TECHNIQUE: AP and lateral views of the left knee. FINDINGS: Bony mineralization is normal. A mildly displaced vertical fracture is redemonstrated of the lateral femoral condyle, with intra-articular extension. There is stable mild depression of the intra-articular surface of the lateral tibial plateau. No dislocation is seen. There is a moderate joint effusion. No foreign body seen. XR/XR knee LT 3V IMPRESSION: There is stable alignment of a comminuted, mildly displaced fracture of the left lateral tibial plateau. There is no significant new callus formation. A moderate joint effusion is seen.
== END 2023-08-01 09:16 | disposition home or self-care (01) ==
LOC: HO.HOSX 09:15
PROVIDERS: Visit Provider Physician Assistant
DX: S82.142D Displaced bicondylar fracture of left tibia, subsequent encounter for closed fracture with routine healing (principal); M25.562 Pain in left knee
CPT/HCPCS: 73562; 99212

== ENCOUNTER 2023-08-01 11:07 | Outpatient (AMB) | payer OTHER, SELFPAY ==
--- NOTE | 2023-08-01 11:42 | MHC.OFFVIS ---
Intake Vital Signs 08/01/23 11:47 Height 5 ft 8 in Weight 235 lb BMI 35.7 Intake Visit Reasons: OV-Left tibal plateau fx -other options Intake Note: Cristian is a 28 year old male who presents today for a evaluation for his left tibal plat fx, DOI 07/22/23. Patient reports he is doing okay for the most part but he is feeling a bit weary about his last visit. Pain is a at a 3/10 on the pain scale per patient. He states that he is having left hip soreness from using the crutches. Allergies No Known Allergies Allergy (Verified 07/28/23 13:24) HPI OV-Left tibal plateau fx -other options HPI Details 28-year-old male who presents in the office today for a follow up of a left tibial plateau fracture, which occurred on 07/22/2023 status post a slip and fall on the stairs, while at work. He reported he slipped on the top step and jumped backwards 6 steps landing wrong on the bilateral feet. I last saw the patient in the office on 07/28/2023 when we discussed conservative versus surgical options for his left knee. The patient initially wished to move forward with surgical intervention but now would like to discuss more options. While in the office today the patient reports he is doing okay for the most part, but he is feeling a bit weary about his last encounter. He states his pain is a 3/10 while in the office today. He reports left hip pain from using the crutches. [facility] Medical History No known health problems Social History Alcohol intake: current Current occupational status: employed Review of Systems Const All systems reviewed & are unremarkable except as noted in HPI and below Physical Exam Vital Signs: BMI result Body Mass Index 35.7 Const General: cooperative, healthy appearing and no acute distress Resp Effort & Inspection: normal respiratory effort and able to speak in complete sentences Cardio Rate: regular rate Peripheral pulses: Peripheral pulses 2+ throughout GI Palpation (GI): Soft to palpation Skin Lesions: no lesions Rashes: no rashes Extrem Other: Left knee: Mild effusion. Tenderness to palpation along the lateral tibia. Able to dorsiflex and plantarflex. He does endorse intermittent numbness and tingling into the toes. Compartments are soft and compressible. Assessment & Plan Assessment & Plan (1) Tibial plateau fracture, left: Code(s): S82.142A - Displaced bicondylar fracture of left tibia, initial encounter for closed fracture Plan Mr. Giraldo is a 28-year-old male who presents in the office today for a follow up of a left tibial plateau fracture, which occurred on 07/22/2023 status post a slip and fall on the stairs, while at work. He reported he slipped on the top step and jumped backwards 6 steps landing wrong on the bilateral feet. I last saw the patient in the office on 07/28/2023 when we discussed conservative versus surgical options for his left knee. The patient initially wished to move forward with surgical intervention but now would like to discuss more options. While in the office today the patient reports he is doing okay for the most part, but he is feeling a bit weary about his last encounter. He states his pain is a 3/10 while in the office today. He reports left hip pain from using the crutches. We have decided to treat the left knee tibial plateau fracture non-operatively. The patient will be transitioned to an ACL brace, off the shelf, while in the office today. The brace was locked from 0-60 degrees. He will remain non-weight bearing for 3 months. He was given prescription for physical therapy to begin to progress the patient with ROM. He will remain 0-60 degrees for 2 weeks and then to progress 10 degrees per week until he had obtained full ROM. Follow up will be in 4 weeks with repeat x-rays, or sooner if needed. X-rays of the left knee which were obtained while in the office today and were reviewed by me, Bonita Sotomayor PA-C, redemonstrates a left tibal plateau fracture. Orders: Orders XR knee LT 3V Today M25.569 - Pain in unspecified knee PT Evaluation and Treatment Today S82.142A - Displaced bicondylar fracture of left tibia, initial encounter for closed fracture Medications: New [Wheelchair] As directed 1 ea 0RF left tibial plateau fracture Patient Instructions: Scribed for Bonita Sotomayor PA-C by Rebecca Sepulveda medical authorization specialist, on 08/01/2023 at 11:08 am, EST. Coding Level of Care Code Global (86661) Diagnoses Tibial plateau fracture, left S82.142A
[2023-08-01 11:47] VITALS: BMI 35.7
== END 2023-08-01 12:20 | disposition home or self-care (01) ==
PROVIDERS: Visit Provider Physician Assistant
DX: S82.142A Displaced bicondylar fracture of left tibia, initial encounter for closed fracture (principal)
CPT/HCPCS: 99213

== ENCOUNTER 2023-08-26 08:25 | Outpatient (AMB) | payer OTHER, SELFPAY ==
--- NOTE | 2023-08-26 08:33 | A.OFFVIS_ITS ---
Intake Vital Signs 08/26/23 08:34 Height 5 ft 8 in Weight 235 lb BMI 35.7 Intake Visit Reasons: OV-left tibal plat fx, DOI 07/22/23 Intake Note: Cristian is a 28 year old male who presents today for a evaluation for his left tibal plat fx, DOI 07/22/23. Patient reports he is doing well, pain is a 0-2/10 on the pain scale. He states that PT is going good he is slowly noticing improvements. Allergies No Known Allergies Allergy (Verified 08/26/23 08:33) HPI OV-left tibal plat fx, DOI 07/22/23 HPI Details 28-year-old male who presents in the off ice today for a follow up of a left tibial plateau fracture, which occurred on 07/22/2023 status post a slip and fall on the stairs, while at work. I last saw the patient in the office on 08/01/2023 where it was decided to treat the tibial plateau fracture non- operatively. He was transitioned into an ACL brace locked from 0-60 degrees and was instructed to remain non-weight bearing. He was to attend physical therapy and he was to remain 0-60 degrees for 2 weeks and then to progress 10 degrees per week until he had obtained full ROM. While in the office today the patient reports he is doing well. He states his pain is 0-2/10. He confirms participating in physical therapy and states it is going well with slow signs of improvement. [facility] Medical History No known health problems Social History Alcohol intake: current Current occupational status: employed Review of Systems Const All systems reviewed & are unremarkable except as noted in HPI and below Physical Exam Vital Signs: BMI result Body Mass Index 35.7 Const General: cooperative, healthy appearing and no acute distress Resp Effort & Inspection: normal respiratory effort and able to speak in complete sentences Cardio Rate: regular rate Peripheral pulses: Peripheral pulses 2+ throughout GI Palpation (GI): Soft to palpation Skin Lesions: no lesions Rashes: no rashes Extrem Other: Left knee: Normal to inspection. No ecchymosis, erythema, or joint effusion. ROM is 0-70 degrees. NVI. Assessment & Plan Assessment & Plan (1) Tibial plateau fracture, left: Code(s): S82.142A - Displaced bicondylar fracture of left tibia, initial encounter for closed fracture Qualifiers: Encounter type: subsequent encounter Fracture healing: with routine healing Fracture type: closed Qualified Code(s): S82.142D - Displaced bicondylar fracture of left tibia, subsequent encounter for closed fracture with routine healing Plan Mr. Martinez is a 28-year-old male who presents in the office today for a follow up of a left tibial plateau fracture, which occurred on 07/22/2023 status post a slip and fall on the stairs, while at work. I last saw the patient in the office on 08/01/2023 where it was decided to treat the tibial plateau fracture non- operatively. He was transitioned into an ACL brace locked from 0-60 degrees and was instructed to remain non-weight bearing. He was to attend physical therapy and he was to remain 0-60 degrees for 2 weeks and then to progress 10 degrees per week until he had obtained full ROM. While in the office today the patient reports he is doing well. He states his pain is 0-2/10. He confirms participating in physical therapy and states it is going well with slow signs of improvement. He was educated he will remain non-weight bearing for 3 months status post his injury on 07/22/2023. He will continue to work with physical therapy on ROM. Follow up will be in 6 weeks with repeat x-rays, or sooner if needed. X-rays of the left knee which were obtained while in the office today and were reviewed by me, Bonita Sotomayor PA-C, revealed routine healing of a left tibial plateau fracture. Orders: Orders XR knee LT 3V Today M25.569 - Pain in unspecified knee Patient Instructions: Scribed by Rebecca Sepulveda general medical practitioner, for Bonita Sotomayor PA-C on 08/26/2023 at 8:30 am, EST. Coding Level of Care Code Global (54442) Diagnoses Closed fracture of left tibial plateau with routine healing, subsequent encounter S82.142D Encounter type: subsequent encounter Fracture healing: with routine healing Fracture type: closed
[2023-08-26 08:34] VITALS: BMI 35.7
== END 2023-08-26 09:02 | disposition home or self-care (01) ==
PROVIDERS: Visit Provider Physician Assistant
DX: S82.142D Displaced bicondylar fracture of left tibia, subsequent encounter for closed fracture with routine healing (principal)
CPT/HCPCS: 99213

== ENCOUNTER 2023-08-26 15:22 | Outpatient (REF) | payer OTHER, SELFPAY ==
--- NOTE | ~2023-08-26 | XR_ITS ---
EXAMINATION: XR KNEE, LEFT CLINICAL INFORMATION: Pain in unspecified knee. COMPARISON: 08/01/2023 TECHNIQUE: 3-D of the left knee. FINDINGS: Redemonstration of mildly displaced vertical fracture of the lateral femoral condyle with intra-articular extension. There is increased sclerosis suggesting some bridging callus. Previously noted mild depression of the intra-articular surface of the lateral tibial plateau appears less pronounced on this exam. Moderate joint effusion redemonstrated. XR/XR knee LT 3V IMPRESSION: Redemonstration of mildly displaced vertical fracture of the lateral femoral condyle with intra-articular extension. There is increased sclerosis suggesting some bridging callus. Moderate joint effusion redemonstrated.
== END 2023-08-26 15:23 | disposition home or self-care (01) ==
LOC: HO.HOSX 15:22
PROVIDERS: Visit Provider Physician Assistant
DX: S82.142D Displaced bicondylar fracture of left tibia, subsequent encounter for closed fracture with routine healing (principal)
CPT/HCPCS: 73562; 99212

== ENCOUNTER 2023-10-07 08:07 | Outpatient (AMB) | payer OTHER, SELFPAY ==
[2023-10-07 08:20] VITALS: BMI 35.7
--- NOTE | 2023-10-07 08:20 | A.OFFVIS_ITS ---
Intake Vital Signs 10/07/23 08:20 Height 5 ft 8 in Weight 235 lb BMI 35.7 Intake Visit Reasons: ov- LT tibal plat fx DOI 07/22/2023 Intake Note: Cristian is a 28 year old male who presents today for a evaluation for his left tibal plat fx, DOI 07/22/23. Patient reports he is doing well. He states that he notices his improvements with PT . Patient informed me that his ROM has gotten a little better since he has been working with [email or web address]. Currently, not having any pain, however he feels a bit sore at times. Allergies No Known Allergies Allergy (Verified 10/07/23 08:20) HPI ov- LT tibal plat fx DOI 07/22/2023 HPI0 Details 28-year-old male who presents in the off ice today for a follow up of a left tibial plateau fracture, which occurred on 07/22/2023 status post a slip and fall on the stairs, while at work. I last saw the patient in the office on 08/26/2023, at that time he was educated on remaining non-weight bearing for 3 months status post his injury. He was encouraged to continue to work with physical therapy. While in the office the patient reports he is doing well. He confirms improvement with ROM while participating in PT. He does reports soreness inter mittently. [facility] Medical History No known health problems Social History Alcohol intake: current Current occupational status: employed Review of Systems Const All systems reviewed & are unremarkable except as noted in HPI and below Physical Exam Vital Signs: BMI result Body Mass Index 35.7 Const General: cooperative, healthy appearing and no acute distress Resp Effort & Inspection: normal respiratory effort and able to speak in complete sentences Cardio Rate: regular rate Peripheral pulses: Peripheral pulses 2+ throughout GI Palpation (GI): Soft to palpation Skin Lesions: no lesions Rashes: no rashes Extrem Other: Left knee: Normal to inspection. No ecchymosis, erythema, or joint effusion. ROM is 0-110 degrees. NVI. Assessment & Plan Assessment & Plan (1) Tibial plateau fracture, left: Code(s): S82.142A - Displaced bicondylar fracture of left tibia, initial encounter for closed fracture Qualifiers: Encounter type: subsequent encounter Fracture healing: with routine healing Fracture type: closed Qualified Code(s): S82.142D - Displaced bicondylar fracture of left tibia, subsequent encounter for closed fracture with routine healing Plan Mr. Martinez is a 28-year-old male who presents in the office today for a follow up of a left tibial plateau fracture, which occurred on 07/22/2023 status post a slip and fall on the stairs, while at work. I last saw the patient in the office on 08/26/2023, at that time he was educated on remaining non-weight bearing for 3 months status post his injury. He was encouraged to continue to work with physical therapy. While in the office the patient reports he is doing well. He confirms improvement with ROM while participating in PT. He does reports soreness intermittently. Patient was educated at the 3 month saad, in 2 weeks, he is able to progress to 25 percent weight bearing. He will then begin to progress to full weight bearing with the assistance of PT. He was educated should he have any increase in pain he needs to stop weight bearing immediately and call the office to be seen for further evaluation. At his follow up in 6 weeks I anticipated he may be able to remove the brace. At this time he is able to unlock the brace with no ROM restrictions. Follow up will be in 6 weeks, or sooner if needed. X-rays of the left knee which were obtained while in the office today and were reviewed by me, Bonita Sotomayor PA-C, revealed routine healing of a left tibial plateau fracture. Orders: Orders XR knee LT 3V Today M25.569 - Pain in unspecified knee PT Evaluation and Treatment Today S82.142D - Displaced bicondylar fracture of left tibia, subsequent encounter for closed fracture with routine healing Patient Instructions: Scribed by Rebecca Sepulveda medical assistant ob gyn, for Bonita Sotomayor PA-C on 10/07/2023 at 8:14 am, EST. Coding Level of Care Code Global (85541) Diagnoses Closed fracture of left tibial plateau with routine healing, subsequent encounter S82.142D Encounter type: subsequent encounter Fracture healing: with routine healing Fracture type: closed
== END 2023-10-07 08:40 | disposition home or self-care (01) ==
PROVIDERS: Visit Provider Physician Assistant
DX: S82.142D Displaced bicondylar fracture of left tibia, subsequent encounter for closed fracture with routine healing (principal)
CPT/HCPCS: 99213

== ENCOUNTER 2023-10-07 10:16 | Outpatient (REF) | payer OTHER, SELFPAY ==
--- NOTE | ~2023-10-07 | XR_ITS ---
EXAMINATION: XR KNEE, LEFT CLINICAL INFORMATION: Pain, in unspecified knee. COMPARISON: 08/26/2023, 08/01/2023, 07/22/2023 radiographs. TECHNIQUE: AP standing view of bilateral knees as well as AP and sunrise views of the left knee. FINDINGS: Single AP standing view of the right knee demonstrate tiny marginal osteophytes with mild narrowing of the lateral compartment. LEFT KNEE: Previously identified mildly displaced vertical fracture of the lateral femoral condyle with intra-articular extension is less conspicuous with evidence of some bridging callus. Redemonstration of mild depression of the intra-articular surface of the lateral tibial plateau. Joint effusion present. XR/XR knee LT 3V IMPRESSION: 1. Healing fracture of the left lateral femoral condyle with intra-articular extension. 2. Redemonstration of mild depression of the intra-articular surface of the lateral tibial plateau. 3. Joint effusion present. 4. Additional imaging with CT scan or MRI should be considered for better visualization as these modalities are much more sensitive for detection of fracture or other underlying pathology.
== END 2023-10-07 10:17 | disposition home or self-care (01) ==
LOC: HO.HOSX 10:16
PROVIDERS: Visit Provider Physician Assistant
DX: S82.142D Displaced bicondylar fracture of left tibia, subsequent encounter for closed fracture with routine healing (principal)
CPT/HCPCS: 73562; 99212

== ENCOUNTER 2023-11-18 07:54 | Outpatient (AMB) | payer OTHER, SELFPAY ==
--- NOTE | 2023-11-18 08:14 | MHC.OFFVIS ---
Intake Visit Reasons: ov- LT tibal plat fx DOI 07/22/2023 Intake Note: Cristian is a 28 year old male who presents today for a evaluation for his left tibal plat fx, DOI 07/22/23. Patient reports he is doing well, however he is having stiffness. He states that when he is using the stairs he notices that his leg shakes. Patient is working with physical therapy which his last day is tomorrow. Patient is wanting more PT but he is waiting to see if insurance will cover them. Allergies No Known Allergies Allergy (Verified 11/18/23 08:19) HPI HPI ov- LT tibal plat fx DOI 07/22/2023: Details: 28-year-old male who presents in the office today for a follow up of a left tibial plateau fracture, which occurred on 07/22/2023 status post a slip and fall on the stairs, while at work. I last saw the patient in the office on 10/07/2023 when he increased to 25% weight bearing and then to full weight bearing with the assistance of physical therapy. He was also instructed he could unlock the brace with no ROM restrictions. While in the office today the patient reports he is doing well. However, he reports he is having stiffness in the left knee. He claims he is shaky with the use of stairs. He confirms attending physical therapy and states his last session is tomorrow, 11/19/2023. He is interested in discussing extending his sessions but is waiting to see if insurance will cover this. [facility] Medical History No known health problems Social History Alcohol intake: current Current occupational status: employed Review of Systems Const All systems reviewed & are unremarkable except as noted in HPI and below Physical Exam Const General: cooperative, healthy appearing and no acute distress Resp Effort & Inspection: normal respiratory effort and able to speak in complete sentences Cardio Rate: regular rate Peripheral pulses: Peripheral pulses 2+ throughout GI Palpation (GI): Soft to palpation Skin Lesions: no lesions Rashes: no rashes Extrem Other: Left knee: Normal to inspection. No ecchymosis, erythema, or joint effusion. ROM is 0-110 degrees. Able to perform straight leg raise but does have some quad weakness. NVI. Assessment & Plan Assessment & Plan (1) Tibial plateau fracture, left: Code(s): S82.142A - Displaced bicondylar fracture of left tibia, initial encounter for closed fracture Category: Medical Qualifiers: Encounter type: subsequent encounter Fracture healing: with routine healing Fracture type: closed Qualified Code(s): S82.142D - Displaced bicondylar fracture of left tibia, subsequent encounter for closed fracture with routine healing Plan Mr. Martinez is a 28-year-old male who presents in the office today for a follow up of a left tibial plateau fracture, which occurred on 07/22/2023 status post a slip and fall on the stairs, while at work. I last saw the patient in the office on 10/07/2023 when he increased to 25% weight bearing and then to full weight bearing with the assistance of physical therapy. He was also instructed he could unlock the brace with no ROM restrictions. While in the office today the patient reports he is doing well. However, he reports he is having stiffness in the left knee. He claims he is shaky with the use of stairs. He confirms attending physical therapy and states his last session is tomorrow, 11/19/2023. He is interested in discussing extending his sessions but is waiting to see if insurance will cover this. Patient currently has one more session of physical therapy scheduled. A new order to proceed with strengthening was placed in the office today. Should the insurance not approve this he will reach out to the office, and I will attempt to find him some home exercises that he can on work for quad strengthening. Follow up will be in 8 weeks, or sooner if needed. X-rays of the left knee which were obtained while in the office today and were reviewed by me, Bonita Sotomayor PA-C, revealed healed left tibial plateau fracture. Orders: Orders XR knee LT 3V Today M25.569 - Pain in unspecified knee PT Evaluation and Treatment Today S82.142D - Displaced bicondylar fracture of left tibia, subsequent encounter for closed fracture with routine healing Patient Instructions: Scribed by Rebecca Sepulveda medical billing supervisor, for Bonita Sotomayor PA-C on 11/18/2023 at 7:55 am, EST. Coding Level of Care Code Est Pt Level 3 (87681) Diagnoses Closed fracture of left tibial plateau with routine healing, subsequent encounter S82.142D Encounter type: subsequent encounter Fracture healing: with routine healing Fracture type: closed
== END 2023-11-18 08:28 | disposition home or self-care (01) ==
PROVIDERS: Visit Provider Physician Assistant
DX: S82.142D Displaced bicondylar fracture of left tibia, subsequent encounter for closed fracture with routine healing (principal); Z04.2 Encounter for examination and observation following work accident
CPT/HCPCS: 99213

== ENCOUNTER 2023-11-18 15:32 | Outpatient (REF) | payer OTHER, SELFPAY ==
--- NOTE | ~2023-11-18 | XR_ITS ---
EXAMINATION: XR KNEE, LEFT CLINICAL INFORMATION: Pain unspecified knee. COMPARISON: 10/07/2023, 08/26/2023, 08/01/2023, 07/22/2023, 08/13/2022 radiographs of the knees. CT left knee 07/22/2023. TECHNIQUE: AP standing view of bilateral knees. Lateral and sunrise views of the left knee. FINDINGS: No displaced fracture of the lateral femoral condyle appreciated. Redemonstration of a healing comminuted lateral tibial plateau fracture with mildly displaced lateral vertical component. Redemonstration of mild depression of the lateral component. Trace joint effusion present. There has been some interval bridging callus formation. XR/XR knee LT 3V IMPRESSION: Redemonstration of a healing comminuted lateral tibial plateau fracture with mildly displaced lateral vertical component. Redemonstration of mild depression of the lateral component. Joint effusion present.
== END 2023-11-18 15:33 | disposition home or self-care (01) ==
LOC: HO.HOSX 15:32
PROVIDERS: Visit Provider Physician Assistant
DX: S82.142D Displaced bicondylar fracture of left tibia, subsequent encounter for closed fracture with routine healing (principal)
CPT/HCPCS: 73562; 99212

== ENCOUNTER 2024-01-09 09:00 | Outpatient (RCR) | payer OTHER, SELFPAY ==
--- NOTE | 2023-08-12 08:16 | MHC.PT.EP ---
[facility] [place] Office [place] Office [place] [facility] [address] Jarvis Jones [address] [phone] F: [phone] F: [phone] F: [phone] F: [phone] Physical Therapy Plan of Care Date of Evaluation: 08/11/23 Date of Surgery: Diagnosis: DISPLACED BICONDYLAR FX OF LEFT TIBIA Assessment: 28 YO MALE REF TO PT W H/O Lt DISPLACED BICONDYLAR FX OF LEFT TIBIA ON 07/21/23-> HE HAS CHOSEN NON-OPERATIVE COURSE AND PRESENTS TODAY FOR PT EVAL NWB Lt LE W BRACE AND VENANCIO CRUTCHES. THE Pt RESDIES IN A 3RD FLOOR APT AND CURRENTLY HAS BEEN NAVIGATING STAIRS ON HIS BUTTOCKS. THE Pt HAS RESTRICTIONS CONSISTING OF NWB Lt LE, 0*-60* x 2 WKS AN DTHEN INCR Lt KNEE FLEX BY 10* PER WEEK. HE HAS Lt KNEE ROM DEFICITS, TIGHTNESS IN LATERAL PATELLA, DECR STRENGTH Lt LE, AND FLUCTUATING PAIN DEPENDENT ON ACTIVITY LEVEL. HE HAS DECR BERKLEY TO ADLs, HE IS NWB Lt LE-> UNABLE TO DRIVE, DIFFIC W SHOWERING/ PROLONGED STANDING, AMB NWB Lt W CRUTCHES ANY DISTANCES. HE IS A GREAT CANDIDATE FOR SKILLED PT TO GUIDE HIM ALONG HIS POST- INJURY, NON-OPERATIVE COURSE-> GRADUALLY INCR ROM, STRENGTH, AND FUNCTIONAL MOBILITY PER ORTHO RETRCITIONS/ ORDERS. Frequency and Duration: The patient will be seen 1-2 x WK x 10 WKS Short Term Goals: *GRAD INCREASE ROM Lt KNEE FLEX PER ORTHO ORDERS-> WFL FLEX Lt KNEE *DECR PAIN IN Lt KNEE TO 2-3/10 *INITIATE HEP W RESPECT TO ORTHO RESTRICTIONS [facility]ci Goals: *INDEP W HEP AND SELF-SX MGMT TECHN *ONCE CLEARED FOR Lt LE WT BEARING, Pt DEMON EFFICIENT GAIT MECH ON LEVEL GROUND AND STAIRS, W/O ASST DEVICE *5/5 STRENGTH Lt LE *WFL SQUAT Lt SLS x 10 SEC Treatment Plan: Modalities to reduce pain, spasms and effusion. Manual therapy to restore motion and function. Therapeutic exercise to improve strength and flexibility. Neuromuscular re-education for posture and balance. Therapeutic activities to return to functional activities of daily living. Electronically signed by: CHASTITY MCCARTY PT Please sign and return to therapist. Thank you for your referral.
--- NOTE | 2024-02-12 15:25 | MHC.PT.DC ---
[facility] [place] Office [place] [facility] [place] [facility] [address] Jarvis Jones [address] [facility] [phone] F: [phone] F: [phone] F: [phone] F: [phone] Physical Therapy Discharge Report Diagnosis: DISPLACED BICONDYLAR FX OF LEFT TIBIA Date of Surgery: Date of Evaluation: 08/11/23 Date of Discharge: 02/12/24 Treatments to Date: 20 Cancellations to Date: 5 No Shows to Date: 0 Discharge Status: Achieved Goals Improved Function Independent with HEP Patient Elected to Stop Discharge Summary: HESHAM MADE SIGNIFICANT PROGRESS IN PT S/P NON-OP TIBIAL PLATEAU FX-> HE HAS BEEN ABLE TO RTW, AMB EFFICIENTLY W/O ASST DEVICES, AND RESUME MAJORITY OF REGULAR ADLs. AT HIS LAST ATTENDED PT SESSIONS, HE NOTED HE RETURNED TO THE GYM AND HAS HAD SOME MEDIAL HAMSTRING SORENESS- HE IS MOTIVATED AND INDEP W HEP. AT THIS TIME HE FEELS READY TO CONTINUE ON HIS OWN AND HAS MET THE MAJORITY OF HIS PT GOALS. Electronically signed by: Felecia Snyder,PT Please sign and return to therapist. Thank you for your referral.
== END 2024-02-12 15:24 | disposition home or self-care (01) ==
LOC: HO.PT 09:00
PROVIDERS: Visit Provider Physician Assistant
DX: S82.142A Displaced bicondylar fracture of left tibia, initial encounter for closed fracture (principal)
CPT/HCPCS: 97014; 97110; 97112; 97116; 97140; 97162; 97530; 97535

== ENCOUNTER 2024-01-13 07:40 | Outpatient (REF) | payer OTHER, SELFPAY ==
--- NOTE | ~2024-01-13 | XR_ITS ---
EXAMINATION: XR KNEE, LEFT CLINICAL INFORMATION: Knee pain COMPARISON: Radiographs 11/17/2023 TECHNIQUE: AP standing view both knees. Lateral and sunrise views of the left knee. FINDINGS: Evidence of the lateral tibial plateau fracture. Fracture lines are no longer visible. There is slight articular surface incongruity and surface depression remaining. No significant joint effusion. Otherwise unremarkable. XR/XR knee LT 3V IMPRESSION: Complete or near complete healing of the lateral tibial plateau fracture with residual articular surface irregularity/depression.
== END 2024-01-13 07:41 | disposition home or self-care (01) ==
LOC: HO.HOSX 07:40
PROVIDERS: Visit Provider Physician Assistant
DX: S82.142D Displaced bicondylar fracture of left tibia, subsequent encounter for closed fracture with routine healing (principal)
CPT/HCPCS: 73562; 99212

== ENCOUNTER 2024-01-13 08:06 | Outpatient (AMB) | payer OTHER, SELFPAY ==
--- NOTE | 2024-01-13 08:10 | MHC.OFFVIS ---
Vital Signs 01/13/24 08:16 Height 5 ft 8 in Weight 265 lb BMI 40.3 Intake Visit Reasons: OV - Left Tibial Plateau Fracture DOI 07/22/23 Intake Note: Cristian is a 28 year old male who presents today for a evaluation for his left tibal plat fx, DOI 07/22/23. Patient reports he is having hamstring tightness and expresses a lot of pain on the opposite site of his fracture. He has been going back to the gym and working on recovery and strengthening exercises and noticed this is when the pain exacerbates. He completed PT on Friday01/09/24 and states he has noticed improvement. Allergies No Known Allergies Allergy (Verified 01/13/24 08:16) HPI HPI OV - Left Tibial Plateau Fracture DOI 07/22/23: Details: 28-year-old male who presents in the office today for a follow up of a left tibial plateau fracture, which occurred on 07/22/2023 status post a slip and fall on the stairs, while at work. I last saw the patient in the office on 11/18/2023 when an order was placed to progress to strengthening during physical therapy sessions.? ? While in the office today, the patient reports he is having hamstring tightness. He also expresses ?a lot? of pain, and points along the lateral side of the knee. ? The patient reports he has been going to the gym and working on his recovery by performing strengthening exercises. He states he notices his pain is exacerbated during this time. ? ? The patient confirms completion of physical therapy on Friday01/09/2024 and reports noticed improvement. ? [facility] Medical History No known health problems Social History Alcohol intake: current Current occupational status: employed Review of Systems Const All systems reviewed & are unremarkable except as noted in HPI and below Physical Exam Vital Signs: BMI result Body Mass Index 40.3 Const General: cooperative, healthy appearing and no acute distress Resp Effort & Inspection: normal respiratory effort and able to speak in complete sentences Cardio Rate: regular rate Peripheral pulses: Peripheral pulses 2+ throughout GI Palpation (GI): Soft to palpation Skin Lesions: no lesions Rashes: no rashes Extrem Other: Left knee: Normal to inspection. No ecchymosis, erythema, or joint effusion. ROM is 0-110 degrees. Able to perform straight leg raise but does have some hamstring weakness. NVI. Assessment & Plan Assessment & Plan (1) Tibial plateau fracture, left: Code(s): S82.142A - Displaced bicondylar fracture of left tibia, initial encounter for closed fracture Category: Medical Qualifiers: Encounter type: subsequent encounter Fracture healing: with routine healing Fracture type: closed Qualified Code(s): S82.142D - Displaced bicondylar fracture of left tibia, subsequent encounter for closed fracture with routine healing Plan Mr. Martinez is a 28-year-old male who presents in the office today for a follow up of a left tibial plateau fracture, which occurred on 07/22/2023 status post a slip and fall on the stairs, while at work. I last saw the patient in the office on 11/18/2023 when an order was placed to progress to strengthening during physical therapy sessions.? ? While in the office today, the patient reports he is having hamstring tightness. He also expresses ?a lot? of pain on the opposite side of his fracture. ? ? The patient reports he has been going to the gym and working on his recovery by performing strengthening exercises. He states he notices his pain is exacerbated during this time. ? ? The patient confirms completion of physical therapy on Friday01/09/2024 and reports noticed improvement.? ? The patient will be referred for physical therapy to attend more sessions to work on hamstring strength and stretching. I do find this appropriate at this time. Follow-up will be in three months, or sooner if needed. ? ? X-rays of the left knee which were obtained while in the office today and were reviewed by me, Bonita Sotomayor PA-C, revealed routine healing of the left tibial plateau fracture. ? Orders: Orders XR knee LT 3V Today M25.569 - Pain in unspecified knee PT Evaluation and Treatment Today S82.142D - Displaced bicondylar fracture of left tibia, subsequent encounter for closed fracture with routine healing Patient Instructions: Scribed by Rebecca Sepulveda expert medical writer, for Bnoita Sotomayor PA-C on 01/13/2024 at 8:12 am, EST.? Coding Level of Care Code Est Pt Level 3 (11664) Diagnoses Closed fracture of left tibial plateau with routine healing, subsequent encounter S82.142D Encounter type: subsequent encounter Fracture healing: with routine healing Fracture type: closed
[2024-01-13 08:16] VITALS: BMI 40.3
== END 2024-01-13 08:38 | disposition home or self-care (01) ==
PROVIDERS: Visit Provider Physician Assistant
DX: S82.142D Displaced bicondylar fracture of left tibia, subsequent encounter for closed fracture with routine healing (principal)
CPT/HCPCS: 99213

== ENCOUNTER 2024-04-22 13:17 | Outpatient (AMB) | payer OTHER, SELFPAY ==
--- NOTE | 2024-04-22 13:46 | MHC.OFFVIS ---
Intake Visit Reasons: Left Tibial Plateau Fracture DOI 07/22/23 Intake Note: Cristian is a 28 year old male who presents today for a evaluation for his left tibal plat fx, DOI 07/22/23. Patient reports he is doing well, he notices when he is sitting or standing for too long his knee gets very sore. He also mentions when he is going down the stairs he feels something rubbing or his knee is going to give out. Allergies No Known Allergies Allergy (Verified 04/22/24 13:54) HPI HPI Left Tibial Plateau Fracture DOI 07/22/23: Details: 29-year-old male who presents in the office today for a follow-up of a left tibial plateau fracture, which occurred on 07/22/2023 status post a slip and fall on the stairs, while at work. I last saw the patient in the office on 01/13/24 when he was referred to physical therapy to work on hamstring strength and stretching. While in the office today, the patient reports severe soreness in his left knee with prolonged sitting or standing. He mentions that he feels like ?something rubbing? in his left knee or he feels like his left knee will give out while ambulating down the stairs. [facility] Medical History No known health problems Social History Alcohol intake: current Current occupational status: employed Review of Systems Const All systems reviewed & are unremarkable except as noted in HPI and below Physical Exam Const General: cooperative, healthy appearing and no acute distress Resp Effort & Inspection: normal respiratory effort and able to speak in complete sentences Cardio Rate: regular rate Peripheral pulses: Peripheral pulses 2+ throughout GI Palpation (GI): Soft to palpation Skin Lesions: no lesions Rashes: no rashes Extrem Other: Left knee: Normal to inspection. No ecchymosis, erythema, or joint effusion. No tenderness to palpation along the medial or lateral joint lines. Full knee extension and flexion. Negative matt?s. Negative anterior drawer. NVI. Assessment & Plan Assessment & Plan (1) Tibial plateau fracture, left: Code(s): S82.142A - Displaced bicondylar fracture of left tibia, initial encounter for closed fracture Category: Medical Qualifiers: Encounter type: subsequent encounter Fracture healing: with routine healing Fracture type: closed Qualified Code(s): S82.142D - Displaced bicondylar fracture of left tibia, subsequent encounter for closed fracture with routine healing Plan Mr. Martinez is a 29-year-old male who presents in the office today for a follow-up of a left tibial plateau fracture, which occurred on 07/22/2023 status post a slip and fall on the stairs, while at work. I last saw the patient in the office on 01/13/24 when he was referred to physical therapy to work on hamstring strength and stretching. While in the office today, the patient reports severe soreness in his left knee with prolonged sitting or standing. He mentions that he feels like ?something rubbing? in his left knee or he feels like his left knee will give out while ambulating down the stairs. The patient was provided with a [employer] knee brace, off the shelf. We discussed the role of continuing the physical therapy as the patient complains he feels like his left knee is about to give out at times when he is ambulating down the stairs. However, he has a , and he is unable to attend any physical therapy at this time. Therefore, we have deferred any additional sessions of PT. Follow-up will be PRN, or sooner if needed. Patient Instructions: Scribed by Jadyn Richards certified medical biller, for Bonita Sotomayor PA-C on 04/22/24 at 1:45 am EST. Coding Level of Care Code Est Pt Level 3 (09647) Diagnoses Closed fracture of left tibial plateau with routine healing, subsequent encounter S82.142D Encounter type: subsequent encounter Fracture healing: with routine healing Fracture type: closed
== END 2024-04-22 14:04 | disposition home or self-care (01) ==
PROVIDERS: Visit Provider Physician Assistant
DX: S82.142D Displaced bicondylar fracture of left tibia, subsequent encounter for closed fracture with routine healing (principal); W10.8XXA Fall (on) (from) other stairs and steps, initial encounter; Z04.2 Encounter for examination and observation following work accident
CPT/HCPCS: 99213

== ENCOUNTER → 2024-04-22 13:17 | Outpatient (BNVA) | payer OTHER, SELFPAY | PROVIDERS: Visit Provider Physician Assistant | DX: S82.142D Displaced bicondylar fracture of left tibia, subsequent encounter for closed fracture with routine healing (principal) | CPT/HCPCS: 99212 ==